=== PATIENT | female | born 1955 | race Caucasian/White ===

== ENCOUNTER 2017-07-05 13:27 | Emergency (ER) | payer OTHER ==
[~2017-07-05] VITALS: Wt 65.9 kg
[~2017-07-05 13:27] MED LIST: ACET500T98 PO; ALBU18HF INHALATION; CALC-67 PO; FOLI-49 PO; IBUP-1542 PO; LEFL20TA PO; MET25 PO; OMEP20CA16 PO; OSLT75C PO; PRED20TA PO; SULF500T5 PO; TYL500 PO
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
[2017-07-05] MEDS ORDERED: LORA-441 PO (14:39)
[2017-07-05] MEDS ORDERED: MOME13HF INHALATION (14:39)
[2017-07-05] MEDS ORDERED: ALBU18HF INHALATION (14:39)
== END 2017-07-05 15:00 | disposition home or self-care (01) ==
LOC: FTE 13:27
DX: M54.2 Cervicalgia (principal); F41.9 Anxiety disorder, unspecified; J45.909 Unspecified asthma, uncomplicated
CPT/HCPCS: 99284

== ENCOUNTER 2018-12-28 13:04 | Emergency (ER) | payer OTHER ==
[~2018-12-28] VITALS: Ht 157.5 cm; Wt 60.7 kg
[~2018-12-28 13:04] MED LIST changes: +LORA-441 PO; +MOME13HF INHALATION; +OSEL75CA23 PO; -OSLT75C PO
[2018-12-28 13:18] VITALS: Ht 157.5 cm; Wt 60.7 kg
[2018-12-28] MEDS ORDERED: SOD CHLORIDE 0.9% 1,000 ML IV STA (14:14)
[2018-12-28] MEDS ORDERED: LORAZEPAM 2 MG INJ IV ONE (14:30)
[2018-12-28] MEDS ORDERED: MECLIZINE 12.5 MG TAB PO ONE (14:30)
[2018-12-28] MEDS ORDERED: LEFL10TA15 PO (14:53)
[2018-12-28] MEDS ORDERED: FOLI-49 PO (14:53)
[2018-12-28] MEDS ORDERED: MET25 PO (14:54)
[2018-12-28] MEDS ORDERED: CALC-662 PO (14:55)
[2018-12-28 16:00] VITALS: BP 165/101; PULSE 82; RESP 19
[2018-12-28] MEDS ORDERED: MECL-77 PO (16:21)
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
== END 2018-12-28 16:36 | disposition home or self-care (01) ==
LOC: E/R 13:04
DX: H81.10 Benign paroxysmal vertigo, unspecified ear (principal); J45.909 Unspecified asthma, uncomplicated; R40.2142 Coma scale, eyes open, spontaneous, at arrival to emergency department; R40.2252 Coma scale, best verbal response, oriented, at arrival to emergency department; R40.2362 Coma scale, best motor response, obeys commands, at arrival to emergency department
CPT/HCPCS: 36415; 70450; 80048; 85025; 96374; J2060; J7030; Z7502; Z7610